=== PATIENT | female | born 1990 | race Caucasian/White ===

== ENCOUNTER 2022-10-09 14:22 | Inpatient (IN) ==
--- NOTE | 2022-10-09 15:24 | Emergency Department Note ---
Impression & Plan Abdominal pain, Colitis ED Provider Note HISTORY OF PRESENT ILLNESS: Patient is a 32-year-old female presenting with abdominal pain and hematochezia. Patient reports that she has been having generalized abdominal pain that radiates into her back since last night. Reports that today she has been having multiple episodes of bright red hematochezia. Denies any nausea, vomiting or diarrhea. Denies any history of abdominal surgeries. Denies any fevers. She is on Coumadin for history of pulmonary embolism. Denies any dysuria or hematuria. ROS: as above PHYSICAL EXAM: Constitutional: Patient appears in no acute distress. HENT: Head: Normocephalic and atraumatic. Eyes: EOMI, PERRL Mouth/Throat: Mucous membranes moist. Neck: Trachea midline. Neck supple. Cardiovascular: RRR, No murmurs, rubs or gallops. Intact distal pulses. Pulmonary/Chest: No respiratory distress. Breath sounds clear and equal bilaterally. No wheezes or rales. Abdominal: Abdomen soft, no tenderness, rebound or guarding. Musculoskeletal: No edema, tenderness or deformity noted. Skin: Warm and dry. No rash, erythema, pallor or cyanosis Psychiatric: Appropriate mood and affect for situation. Neurological: Alert and keenly responsive. CN II-XII grossly intact, moving all extremities equally and fully. MDM: - Vitals signs showed hypertension and tachycardia. - History obtained via patient. Patient presents with abdominal pain and hematochezia. Patient reports has been having generalized abdominal pain that radiates into her back since last night. Reports that today she had multiple episodes of hematochezia. Denies any nausea, vomiting or diarrhea. Denies any fevers. She is on Coumadin for history of PE. - Chronic conditions affecting care: PE - Differential diagnoses include, but are not limited to: Diverticular bleed; diverticulitis; colitis; appendicitis - Order placed for continuous cardiac monitoring. At this time, monitor showed rate of 85 bpm with normal sinus rhythm, per my interpretation. - External medical records reviewed. ER visit note from yesterday and laborator y work-up were reviewed. - Laboratory workup interpreted by myself showed leukocytosis (WBC 14.11); normal electrolytes; normal lipase - CT abdomen/pelvis with IV contrast showed inflammation of the pancreas concerning for developing acute pancreatitis. Also noted to have some inflammation of the distal consistent with colitis. - Patient given 50 mcg IV fentanyl in ER. On reassessment, patient still complaining of pain and now complaining of nausea. Given 1L NS, 4 mg IV zofran and 4 mg IV morphine. - Discussed results with patient. Her bloody stool likely secondary to her colitis. Given her leukocytosis and symptoms, will treat as infectious colitis with agumentin. - Given dose of augmentin in ER. - Instructed the patient on return precautions. She is given a note to go home pack of oxycodone and Augmentin. Recommend she stay well-hydrated over the next few days. Recommended close follow-up with her primary care provider. Recommended taking Tylenol for further pain management. - On attempts to discharge the patient, she started crying and reported she is in "too much pain to go home." - Discussed case with group social worker for admission for observation. - Hospitalist consulted for admission. - Patient to be admitted to hospitalist for further evaluation and admission. ASSESSMENT AND PLAN: Diagnosis: Abdominal pain; colitis; bloody stool Plan: admit Past Med/Surg History Medical History On warfarin therapy Rheumatoid arthritis Social History Smoking Status: Current some day smoker Tobacco Type: Cigarettes and E-cigarettes / Vaping Preferred Language: Hungarian Feels Safe at Home: Yes Allergies Allergies Allergy/AdvReac Type Severity Reaction Status Date / Time No Known Allergies Allergy Mild Unverified 12/08/20 12:40 Home Meds Home Medications Medication Instructions Recorded Confirmed Zolpidem Tartrate (Ambien *) ##0 12/24/05 Cyclobenzaprine Hcl (Flexeril *) 10 mg PO TID ##21 10/27/08 Lorazepam (Ativan *) 0.5 mg PO Q6HR PRN ##0 10/27/08 Meloxicam (Mobic) 15 mg PO PRN ##0 10/27/08 Methadone Hcl (Dolophine) 5 mg PO QPM ##0 10/27/08 Methadone Hcl (Dolophine) 10 mg PO QAM ##0 10/27/08 Methylphenidate (Ritalin) 10 mg PO PRN ##0 10/27/08 PRISTIQUE ##0 09/21/09 Previous Rx's Medication Instructions Recorded Cephalexin Monohydrate (Keflex) 500 mg PO TID ##30 12/24/05 Azithromycin (Zithromax) 500 mg PO DAILY ##4 10/27/08 amoxicillin 875 mg-potassium 1 tab PO BID 7 days #14 tabs 10/09/22 clavulanate 125 mg tablet ondansetron HCl 4 mg tablet 4 mg PO Q8H PRN nausea and 10/09/22 vomiting 4 days #14 tabs Results & Data (ED) Vital Signs Vital Signs - 24 hr 10/09/22 14:24 10/09/22 15:26 10/09/22 15:47 Temperature 36.8 C Temperature Source Temporal Artery Scan Pulse Rate 114 H 85 Respiratory Rate 18 Respiratory Effort / Characteristics Non-Labored Respiratory Depth Normal Respiratory Pattern Regular Blood Pressure 162/94 H Blood Pressure Mean 116 Pulse Oximetry 99 Oxygen Delivery Method Room Air Room Air Sepsis Recent Fever Within 48 Hours No Sepsis New/Unexplained Change in Mental Status N/A Sepsis Action Taken by Nursing No Action Required Laboratory Data 10/09/22 15:22 10/09/22 15:22 Lab Results 10/09/22 10/09/22 10/09/22 Range/Units 15:22 15:22 15:22 WBC 14.11 H (4.8-10.8) K/ul RBC 4.80 (4.20-5.40) M/uL Hgb 14.4 (12.0-16.0) g/dl Hct 41.1 (37.0-47.0) % MCV 85.6 (80.0-100.0) fL MCH 30.0 (25.0-34.0) pg MCHC 35.0 (32.0-36.0) g/dL RDW Std Deviation 41.1 (36.4-46.3) fL RDW Coeff of Junaid 13.3 (11.5-14.5) % Plt Count 396 (130-400) K/uL MPV 10.4 (9.4-12.4) fL Immature Gran % (Auto) 0.4 % Neut % (Auto) 76.9 % Lymph % (Auto) 16.2 % [place] % (Auto) 5.6 % Eos % (Auto) 0.4 % Baso % (Auto) 0.5 % Neut # (Auto) 10.86 H (1.40-6.50) K/uL Lymph # (Auto) 2.28 (1.20-3.40) K/uL [place] # (Auto) 0.79 H (0.11-0.59) K/uL Eos # (Auto) 0.05 (0.00-0.50) K/uL Baso # (Auto) 0.07 (0.00-0.20) K/uL Immature Gran # (Auto) 0.06 (0.01-0.20) K/uL Sodium 137 (136-145) mmol/L Potassium 3.5 (3.5-5.1) mmol/L Chloride 102 (98-107) mmol/L Carbon Dioxide 25 (21-32) mmol/L Anion Gap 10 (3-11) BUN 11 (6-23) mg/dl Creatinine 0.51 L (0.6-1.2) mg/dl Est Cr Clr Drug Dosing 178.6 ml/min Est GFR ( Amer) 145.4 ml/min Est GFR (Non-Af Amer) 125.5 ml/min BUN/Creatinine Ratio 21.6 H (10-20) Glucose 88 (70-99(Fasting)) mg/dl Lactate 1.1 (0.4-2.0) mmol/L Calcium 9.7 (8.6-10.3) mg/dl Total Bilirubin 0.4 (0.2-1.0) mg/dl AST 14 (13-39) U/L ALT 14 (7-52) U/L Alkaline Phosphatase 64 (34-104) U/L Total Protein 7.0 (6.0-8.3) gm/dl Albumin 4.5 (3.4-5.0) gm/dl Globulin 2.5 (2.5-4.0) gm/dl Albumin/Globulin Ratio 1.8 (0.9-2) Lipase 57 (11-82) U/L Administered Medications Sodium Chloride (Nss 1000ml) 1,000 mls @ 999 mls/hr IV .Q1H1M ONE Stop: 10/09/22 18:13 Last Admin: 10/09/22 17:28 Dose: 999 mls/hr Documented By: Discontinued Medications Fentanyl Citrate (Fentanyl Citrate Pf 100 Mcg/2 Ml Vial) 50 mcg IV NOW STA Stop: 10/09/22 16:13 Last Admin: 10/09/22 16:16 Dose: 50 mcg Documented By: BELLA Ioversol (Optiray 320 100ml) 92 ml IV ONCE ONE Stop: 10/09/22 16:57 Last Admin: 10/09/22 16:56 Dose: 92 ml Documented By: SCOTTIE Morphine Sulfate (Morphine Sulfate 4 Mg/Ml 1 Ml Carp\\Vial) 4 mg IV NOW STA Stop: 10/09/22 17:14 Last Admin: 10/09/22 17:29 Dose: 4 mg Documented By: BELLA Ondansetron HCl (Ondansetron Inj 2 Mg/Ml 2 Ml Vial) 4 mg IV NOW STA Stop: 10/09/22 17:14 Last Admin: 10/09/22 17:28 Dose: 4 mg Documented By: BELLA Imaging Data Radiologist's Impression: Abdomen/Pelvis CT 10/09/22 14:[address] WITH IV CONTRAST CT DOSE: 1380.75 mGy.cm HISTORY: lower abdominal pain; blood in stool TECHNIQUE: Multiaxial CT images of the abdomen and pelvis were performed following the use of intravenous contrast. A dose lowering technique was utilized adhering to the principles of ALARA. COMPARISON STUDY: None. FINDINGS: Mild dependent changes seen at the lung bases. No pneumoperitoneum. No pneumatosis. No acute fractures identified. The liver, spleen, adrenal glands, gallbladder, and kidneys are unremarkable. No hydronephrosis. The main portal vein is patent. Normal caliber abdominal aorta. There is a left retroaortic renal vein. No retroperitoneal or pelvic lymphadenopathy. The bladder is decompressed but appears unremarkable. Small uterine fibroids are suggested. Normal ovaries. No pelvic free fluid. Questionable mild fat stranding at the head of the pancreas. Recommend correlation with pancreatic enzymes to exclude the possibility of a developing acute pancreatitis. Otherwise, the pancreas enhances normally. The majority of the colon is decompressed resulting in s uboptimal evaluation. There is suggestion of mild thickening within the distal transverse colon best seen on image 126. This could represent a low-grade nonspecific colitis. This favors an infectious or inflammatory process. The major mesenteric vessels appear patent. No dilated loops of bowel to suggest an obstruction. Normal appendix. IMPRESSION: 1. There is suggestion of mild thickening within the distal transverse colon as described above. This could represent a low-grade nonspecific colitis. This favors an infectious or inflammatory process. 2. Questionable mild fat stranding at the head of the pancreas. Recommend correlation with pancreatic enzymes to exclude the possibility of a developing acute pancreatitis. ACT 112: Negative or not required by law. Electronically signed by: Rupert Livingston M.D. 10/09/2022 5:17 PM Discharge Plan Visit Data Chief Complaint: Abdominal Pain Stated Complaint: ABDOMINAL PAIN, BLOOD IN STOOL ED Provider: Quin Roth Discharge Problem: Abdominal pain, Colitis Patient Disposition: Home - Self-Care Discharge Instructions Krames/Other Patient Handouts: ED Diarrhea, Viral (Adult) Activity Restrictions/Additional Instructions: Recommend staying well-hydrated the next 2 days. Please take Tylenol as needed for pain. Please follow close with your primary care provider. Recommend a low-fat diet over the next few days. Return to the emergency department if you are unable to tolerate anything by mouth, develop chest pain or shortness of breath, fever, or any new or worsening symptoms. Forms Stand Alone Forms: [facility], Virtual Emergency Department, Important Visit Information Prescriptions Prescriptions: New amoxicillin-pot clavulanate 875-125 mg tablet 1 tab PO BID 7 Days Qty: 14 0RF ondansetron HCl 4 mg tablet 4 mg PO Q8H PRN (Reason: nausea and vomiting) 4 Days Qty: 14 0RF No Action Zolpidem Tartrate (Ambien *) 5 MG tablet Qty: 0 Cephalexin Monohydrate (Keflex) 500 MG capsule 500 mg PO TID Qty: 30 0RF Cyclobenzaprine Hcl (Flexeril *) 10 MG tablet 10 mg PO TID Qty: 21 Patient Comments: PRN Lorazepam (Ativan *) 0.5 MG tablet 0.5 mg PO Q6HR PRN Qty: 0 Meloxicam (Mobic) 15 MG tablet 15 mg PO PRN Qty: 0 Methadone Hcl (Dolophine) 10 MG tablet 10 mg PO QAM Qty: 0 Methadone Hcl (Dolophine) 5 MG tablet 5 mg PO QPM Qty: 0 Methylphenidate (Ritalin) 10 MG tablet 10 mg PO PRN Qty: 0 PRISTIQUE Qty: 0 Azithromycin (Zithromax) 500 MG tablet 500 mg PO DAILY Qty: 4 0RF Referrals Referrals: Partha Mei, [Primary Care Provider] -
[2022-10-09 16:02] LABS: Basophils # (auto) 0.07 K/uL (0.00-0.20); Basophils % (auto) 0.5 %; Eosinophils # (auto) 0.05 K/uL (0.00-0.50); Eosinophils % (auto) 0.4 %; Hematocrit (blood only) 41.1 % (37.0-47.0); Hemoglobin 14.4 g/dl (12.0-16.0); Immature Granulocytes # (auto) 0.06 K/uL (0.01-0.20); Immature Granulocytes % (auto) 0.4 %; Lymphocytes # (auto) 2.28 K/uL (1.20-3.40); Lymphocytes % (auto) 16.2 %; Mean Corpuscular Volume 85.6 fL (80.0-100.0); Mean Platelet Volume 10.4 fL (9.4-12.4); Monocytes # (auto) 0.79 K/uL (0.11-0.59); Monocytes % (auto) 5.6 %; Neutrophils # (auto) 10.86 K/uL (1.40-6.50); Neutrophils % (auto) 76.9 %; Platelet Count 396 K/uL (130-400); RDW Coefficient of Variation 13.3 % (11.5-14.5); RDW Standard Deviation 41.1 fL (36.4-46.3); White Blood Count 14.11 K/ul (4.8-10.8)
[2022-10-09] MEDS ORDERED: fentaNYL citrate PF 100 MCG/2 ML VIAL IV STA (16:12)
[2022-10-09 16:27] LABS: Albumin Globulin Ratio 1.8 (0.9-2); Albumin Level 4.5 gm/dl (3.4-5.0); BUN Creatinine Ratio 21.6 (10-20); Bilirubin,Total 0.4 mg/dl (0.2-1.0); Calcium 9.7 mg/dl (8.6-10.3); Creatinine Clr Calc Pharmacy 178.6 ml/min; Est GFR (African American) 145.4 ml/min; Est GFR (Non-African American) 125.5 ml/min; Globulin 2.5 gm/dl (2.5-4.0); Potassium 3.5 mmol/L (3.5-5.1)
[2022-10-09] MEDS ORDERED: OPTIRAY 320 100ml IV ONE (16:56)
[2022-10-09] MEDS ORDERED: ONDANSETRON INJ 2 MG/ML 2 ML VIAL IV STA (17:13)
[2022-10-09] MEDS ORDERED: MoRPHine SULFATE 4 MG/ML 1 ML CARP\\VIAL IV STA (17:13)
[2022-10-09] MEDS ORDERED: SODIUM CHLORIDE 0.9% 1,000 ML IV ONE (17:13)
--- NOTE | 2022-10-09 17:20 | CT Scan Report ---
ABDOMEN AND PELVIS CT WITH IV CONTRAST CT DOSE: 1380.75 mGy.cm HISTORY: lower abdominal pain; blood in stool TECHNIQUE: Multiaxial CT images of the abdomen and pelvis were performed following the use of intrave nous contrast. A dose lowering technique was utilized adhering to the principles of ALARA. COMPARISON STUDY: None. FINDINGS: Mild dependent changes seen at the lung bases. No pneumoperitoneum. No pneumatosis. No acut e fractures identified. The liver, spleen, adrenal glands, gallbladder, and kidneys are unremarkable. No hydronephrosis. The main portal vein is patent. Normal caliber abdominal aorta. There is a left r etroaortic renal vein. No retroperitoneal or pelvic lymphadenopathy. The bladder is decompressed but appears unremarkable. Small uterine fibroids are suggested. Normal ovaries. No pelvic free fluid. Que stionable mild fat stranding at the head of the pancreas. Recommend correlation with pancreatic enzym es to exclude the possibility of a developing acute pancreatitis. Otherwise, the pancreas enhances no rmally. The majority of the colon is decompressed resulting in suboptimal evaluation. There is sugges tion of mild thickening within the distal transverse colon best seen on image 126. This could represe nt a low-grade nonspecific colitis. This favors an infectious or inflammatory process. The major mese nteric vessels appear patent. No dilated loops of bowel to suggest an obstruction. Normal appendix. IMPRESSION: 1. There is suggestion of mild thickening within the distal transverse colon as described above. This could represent a low-grade nonspecific colitis. This favors an infectious or inflammatory process. 2. Questionable mild fat stranding at the head of the pancreas. Recommend correlation with pancreatic enzymes to exclude the possibility of a developing acute pancreatitis. ACT 112: Negative or not required by law. Electronically signed by: Rupert Livingston M.D. 10/09/2022 5:17 PM
[2022-10-09] MEDS ORDERED: AMOXICILLIN/CLAVULANATE 875MG HOME PACK PO ONE (17:23)
[2022-10-09] MEDS ORDERED: AMOXICILLIN/CLAVULANATE 875 MG TAB PO ONE (17:23)
[2022-10-09] MEDS ORDERED: oxyCODONE IR HOME PACK PO ONE (17:29)
[2022-10-09] MEDS ORDERED: ONDANSETRON HOME PACK 4MG OD TAB PO ONE (17:29)
[2022-10-09] MEDS ORDERED: MoRPHine SULFATE 4 MG/ML 1 ML CARP\\VIAL IV PRN (18:18)
[2022-10-09 19:44] LABS: Pregnancy Test, Urine Negative (Negative)
[2022-10-09 19:45] LABS: Appearance Urine Clear (Clear); Bacteria Urine Automated Negative (Negative); Bilirubin Urine Negative (Negative); Blood Urine 2+ (Negative); Cast Urine Automated 0 /lpf (0-5); Color Urine Yellow; Epithelial Cell Urine Auto 0-5 /lpf (0-5); Glucose Urine UA Negative (Negative); Ketones Urine 1+ (Negative); Leukocyte Esterase Urine Negative (Negative); Nitrite Urine Negative (Negative); Protein Urine Negative (Negative); Specific Gravity Urine 1.039 (1.000-1.030); Urobilinogen Urine Negative (Negative); WBC Urine Automated 0 /hpf (0-5)
--- NOTE | 2022-10-09 19:48 | History & Physical Report ---
Date of Service October 09, 2022 Assessment & Plan (1) Abdominal pain: (2) Colitis: Plan: Poss. starting acute pancreatitis Pt presents w/ abd. pain, also reports BRBPR CT abd. pelvis 1. There is suggestion of mild thickening within the distal transverse colon as described above. This could represent a low-grade nonspecific colitis. This favors an infectious or inflammatory process. 2. Questionable mild fat stranding at the head of the pancreas. Recommend correlation with pancreatic enzymes to exclude the possibility of a developing acute pancreatitis. Stool PCR , c. diff ordered FOBT ordered lipase 57 -> will repeat lipase tmrw - as possibly developing acute pancreatitis Received IVF in the ED, cont. w/ IVF, NPO pain control For poss. colitis, start zosyn, await stool studies Hgb 14.4, monitor H&H. in ED pt hemodynamically stable If w/o improvement, consider consulting w/ GI in the morning Chronic conditions bipolar, fibromyalgia, adhd, hx of HAs, adrenal insufficiency - cont. home meds hx of PE, poss. factor V leiden - on chronic anticoagulation - warfarin 15 mg MWF, other days 10 mg - cont. warfarin and monitor INR daily History of Present Illness Chief Complaint: Abd. pain Primary Care Provider: Partha Mei, DO 32 yo F w/ hx of PE (on coumadin), ADHD, seronegat. RA , fibromyalgia, bipolar d/o, poss. factor V leiden, who presents w/ abdominal pain. Pt first presented in the ED yesterday with poss. flank pain and CT PE was obt ained and negative for PE. Today she presented again in the ED as she said she was now noticing blood in the stool and had severe abdominal pain. Pt is on warfarin due to hx of PE and poss. factor V leiden. INR 2.4 today in ER. Pt says her INR tends to fluctuate. Pt reports epigastric pain mostly that radiates to her back, also reports nausea. At home pt takes tramadol 50 tid for chronic pain (associated w/ RA). In the ED CT abd. pelvis was obtained and concerning for poss. starting pancreatitis and also colitis. Initially plan was to discharge pt on oral augmentin and po pain meds however pt reports pain being uncontrolled and therefore pt is being admitted to the hospital. Fam hx - mother - hx of RA, breast ca Allergies Allergy/AdvReac Type Severity Reaction Status Date / Time adhesive Allergy Intermediate Rash Unverified 10/09/22 19:54 Home Medications Medication Instructions Recorded Confirmed Type Methylphenidate (Ritalin) 20 mg PO TID ##0 10/27/08 10/09/22 History amoxicillin 875 mg-potassium 1 tab PO BID 7 days #14 tabs 10/09/22 10/09/22 Rx clavulanate 125 mg tablet [id number] 1 cap PO Q4H PRN Headache 10/09/22 10/09/22 History 50 mg-300 mg-40 mg capsule gabapentin 300 mg capsule 300 mg PO HS 10/09/22 10/09/22 History hydrocortisone 5 mg tablet See Rx Instructions .Route .COMPLEX 10/09/22 10/09/22 History lamotrigine 100 mg tablet 100 mg PO HS 10/09/22 10/09/22 History lamotrigine 25 mg tablet 50 mg PO HS 10/09/22 10/09/22 History methotrexate sodium 25 mg/mL 25 mg subcut WK 10/09/22 10/09/22 History injection solution ondansetron HCl 4 mg tablet 4 mg PO Q8H PRN nausea and 10/09/22 10/09/22 Rx vomiting 4 days #14 tabs prochlorperazine maleate 10 mg 10 mg PO Q6H PRN Nausea 10/09/22 10/09/22 History tablet tramadol 50 mg tablet 50 mg PO Q4H PRN Pain 10/09/22 10/09/22 History warfarin 10 mg tablet See Rx Instructions .Route .COMPLEX 10/09/22 10/09/22 History Past Med/Surg History Medical History On warfarin therapy Rheumatoid arthritis Social History Smoking Status: Current some day smoker Tobacco Type: Cigarettes and E-cigarettes / Vaping Do You Dip or Chew Tobacco: No; Hx Alcohol Use: No Hx Substance Use: No Preferred Language: Yoruba Communication Ability: Effective Joint Filler Required: No Beliefs That Will Affect Care: None Current Living Situation: Family Other Information That Helps Us Care for You: No Feels Safe at Home: No Is there a partner from a previous relationship who is making you feel unsafe now?: No Any Concerns about Your Family Situation: No Would You Like to Speak to Someone About Your Situation: No Safety Concerns: Feels Safe At This Time Assistive Devices: Glasses Review of Systems Review of Systems: All systems reviewed & are unremarkable except as noted in HPI & below Physical Exam Constitutional: WD/WN, vitals as above (obese F) Eyes: PERRL, conjunctivae normal, anicteric sclerae ENMT: external ear and nose normal, oropharynx normal Neck: trachea midline, no thyromegaly Respiratory: normal respiratory effort, lungs clear to auscultation Cardiovascular: RRR, no murmur, no edema Gastrointestinal (Abdomen): Inspection/Auscultation: abdomen normal to inspection (soft, obese, tender to palp at epigastric region) Musculoskeletal: no cyanosis or clubbing, extremities motor strength 5/5 Skin: no rashes, warm and dry Neurologic: PERRL, EOMI, accommodation nl, no face palsy, no dysarthria Psychiatric: A+Ox3, euthymic affect Results & Data Results & Data Vital Signs (Past 12 Hours) Vital Signs Temp Pulse Pulse Resp BP Pulse Ox O2 Del Method 10/09/22 19:38 86 20 99 Room Air 10/09/22 18:00 83 20 158/98 H 99 Room Air 10/09/22 16:00 88 16 100 Room Air 10/09/22 15:47 85 10/09/22 15:26 Room Air 10/09/22 14:24 36.8 C 114 H 18 162/94 H 99 Room Air Laboratory Results 10/09/22 10/09/22 10/09/22 Range/Units 19:15 19:15 15:22 WBC (4.8-10.8) K/ul RBC (4.20-5.40) M/uL Hgb (12.0-16.0) g/dl Hct (37.0-47.0) % MCV (80.0-100.0) fL MCH (25.0-34.0) pg MCHC (32.0-36.0) g/dL RDW Std Deviation (36.4-46.3) fL RDW Coeff of Junaid (11.5-14.5) % Plt Count (130-400) K/uL MPV (9.4-12.4) fL Immature Gran % (Auto) % Neut % (Auto) % Lymph % (Auto) % [place] % (Auto) % Eos % (Auto) % Baso % (Auto) % Neut # (Auto) (1.40-6.50) K/uL Lymph # (Auto) (1.20-3.40) K/uL [place] # (Auto) (0.11-0.59) K/uL Eos # (Auto) (0.00-0.50) K/uL Baso # (Auto) (0.00-0.20) K/uL Immature Gran # (Auto) (0.01-0.20) K/uL Sodium (136-145) mmol/L Potassium (3.5-5.1) mmol/L Chloride (98-107) mmol/L Carbon Dioxide (21-32) mmol/L Anion Gap (3-11) BUN (6-23) mg/dl Creatinine (0.6-1.2) mg/dl Est Cr Clr Drug Dosing ml/min Est GFR ( Amer) ml/min Est GFR (Non-Af Amer) ml/min BUN/Creatinine Ratio (10-20) Glucose (70-99(Fasting)) mg/dl Lactate 1.1 (0.4-2.0) mmol/L Calcium (8.6-10.3) mg/dl Total Bilirubin (0.2-1.0) mg/dl AST (13-39) U/L ALT (7-52) U/L Alkaline Phosphatase (34-104) U/L Total Protein (6.0-8.3) gm/dl Albumin (3.4-5.0) gm/dl Globulin (2.5-4.0) gm/dl Albumin/Globulin Ratio (0.9-2) Lipase (11-82) U/L Urine Color Yellow Urine Appearance Clear (Clear) Urine pH 6.0 (4.5-7.5) Ur Specific [place] 1.039 H (1.000-1.030) Urine Protein Negative (Negative) Urine Glucose (UA) Negative (Negative) Urine Ketones 1+ H (Negative) Urine Blood 2+ H (Negative) Urine Nitrite Negative (Negative) Urine Bilirubin Negative (Negative) Urine Urobilinogen Negative (Negative) Ur Leukocyte Esterase Negative (Negative) Urine WBC (Auto) 0 (0-5) /hpf Urine RBC (Auto) 5-10 H (0-4) /hpf U Hyaline Cast (Auto) 0 (0-5) /lpf U Epithel Cells (Auto) 0-5 (0-5) /lpf Urine Bacteria (Auto) Negative (Negative) Urine Test Negative (Negative) 10/09/22 10/09/22 Range/Units 15:22 15:22 WBC 14.11 H (4.8-10.8) K/ul RBC 4.80 (4.20-5.40) M/uL Hgb 14.4 (12.0-16.0) g/dl Hct 41.1 (37.0-47.0) % MCV 85.6 (80.0-100.0) fL MCH 30.0 (25.0-34.0) pg MCHC 35.0 (32.0-36.0) g/dL RDW Std Deviation 41.1 (36.4-46.3) fL RDW Coeff of Junaid 13.3 (11.5-14.5) % Plt Count 396 (130-400) K/uL MPV 10.4 (9.4-12.4) fL Immature Gran % (Auto) 0.4 % Neut % (Auto) 76.9 % Lymph % (Auto) 16.2 % [place] % (Auto) 5.6 % Eos % (Auto) 0.4 % Baso % (Auto) 0.5 % Neut # (Auto) 10.86 H (1.40-6.50) K/uL Lymph # (Auto) 2.28 (1.20-3.40) K/uL [place] # (Auto) 0.79 H (0.11-0.59) K/uL Eos # (Auto) 0.05 (0.00-0.50) K/uL Baso # (Auto) 0.07 (0.00-0.20) K/uL Immature Gran # (Auto) 0.06 (0.01-0.20) K/uL Sodium 137 (136-145) mmol/L Potassium 3.5 (3.5-5.1) mmol/L Chloride 102 (98-107) mmol/L Carbon Dioxide 25 (21-32) mmol/L Anion Gap 10 (3-11) BUN 11 (6-23) mg/dl Creatinine 0.51 L (0.6-1.2) mg/dl Est Cr Clr Drug Dosing 178.6 ml/min Est GFR ( Amer) 145.4 ml/min Est GFR (Non-Af Amer) 125.5 ml/min BUN/Creatinine Ratio 21.6 H (10-20) Glucose 88 (70-99(Fasting)) mg/dl Lactate (0.4-2.0) mmol/L Calcium 9.7 (8.6-10.3) mg/dl Total Bilirubin 0.4 (0.2-1.0) mg/dl AST 14 (13-39) U/L ALT 14 (7-52) U/L Alkaline Phosphatase 64 (34-104) U/L Total Protein 7.0 (6.0-8.3) gm/dl Albumin 4.5 (3.4-5.0) gm/dl Globulin 2.5 (2.5-4.0) gm/dl Albumin/Globulin Ratio 1.8 (0.9-2) Lipase 57 (11-82) U/L Urine Color Urine Appearance (Clear) Urine pH (4.5-7.5) Ur Specific [place] (1.000-1.030) Urine Protein (Negative) Urine Glucose (UA) (Negative) Urine Ketones (Negative) Urine Blood (Negative) Urine Nitrite (Negative) Urine Bilirubin (Negative) Urine Urobilinogen (Negative) Ur Leukocyte Esterase (Negative) Urine WBC (Auto) (0-5) /hpf Urine RBC (Auto) (0-4) /hpf U Hyaline Cast (Auto) (0-5) /lpf U Epithel Cells (Auto) (0-5) /lpf Urine Bacteria (Auto) (Negative) Urine Test (Negative) Diagnostic Findings CT abd. pelvis FINDINGS: Mild dependent changes seen at the lung bases. No pneumoperitoneum. No pneumatosis. No acute fractures identified. The liver, spleen, adrenal glands, gallbladder, and kidneys are unremarkable. No hydronephrosis. The main portal vein is patent. Normal caliber abdominal aorta. There is a left retroaortic renal vein. No retroperitoneal or pelvic lymphadenopathy. The bladder is decompressed but appears unremarkable. Small uterine fibroids are suggested. Normal ovaries. No pelvic free fluid. Questionable mild fat stranding at the head of the pancreas. Recommend correlation with pancreatic enzymes to exclude the possibility of a developing acute pancreatitis. Otherwise, the pancreas enhances normally. The majority of the colon is decompressed resulting in suboptimal evaluation. There is suggestion of mild thickening within the distal transverse colon best seen on image 126. This could represent a low-grade nonspecific colitis. This favors an infectious or inflammatory process. The major mesenteric vessels appear patent. No dilated loops of bowel to suggest an obstruction. Normal appendix. IMPRESSION: 1. There is suggestion of mild thickening within the distal transverse colon as described above. This could represent a low-grade nonspecific colitis. This favors an infectious or inflammatory process. 2. Questionable mild fat stranding at the head of the pancreas. Recommend correlation with pancreatic enzymes to exclude the possibility of a developing acute pancreatitis. CT PE FINDINGS: Lungs and pleura: Normal. Heart and pericardium: Heart size is normal. No pericardial effusion. Vessels: No evidence of pulmonary embolism. Mediastinum and elizabeth: Unremarkable. Chest wall and lower neck: Unremarkable. Abdomen: A hiatal hernia is seen. Bones: Degenerative changes in the thoracic spine. IMPRESSION: No acute abnormality and in particular no evidence of pulmonary embolus.
[2022-10-09] MEDS ORDERED: PIPERACILLIN/TAZOBACTAM 4.5 GM in DEXTROSE 5% 100 ML IV STA (20:34)
[2022-10-09] MEDS ORDERED: METHYLPHENIDATE 10 MG PO SCH (21:00)
[2022-10-09] MEDS: LACTATED RINGER'S 1,000 ML IV SCH (21:30)
[2022-10-09] MEDS: GABAPENTIN 300 MG CAP PO SCH (21:32)
[2022-10-09] MEDS: lamoTRIgine 100 MG TAB PO SCH (21:32)
[2022-10-09] MEDS: lamoTRIgine 25 MG TAB PO SCH (21:32)
[2022-10-09] MEDS: PANTOprazole 40 MG in SYRINGE 0 ML IV SCH (21:33)
[2022-10-09] MEDS: HYDROmorphone INJ 0.5 MG/0.5 ML SYR IV PRN (21:33)
[2022-10-09] MEDS ORDERED: Nursing to Pharmacy Communication SCH (21:45)
[2022-10-09 21:48] LABS: Adenovirus F 40/41 PCR Not Detected (NotDetected); Astrovirus PCR Not Detected (NotDetected); Campylobacter PCR Not Detected (NotDetected); Cryptosporidium PCR Not Detected (NotDetected); Cyclospora cayetanensis PCR Not Detected (NotDetected); Entamoeba histolytica PCR Not Detected (NotDetected); Enteroaggregative E.coli(EAEC) Not Detected (NotDetected); Enteropathogenic E.coli (EPEC) Not Detected (NotDetected); Enterotoxigenic E.coli (ETEC) Not Detected (NotDetected); Giardia lamblia PCR Not Detected (NotDetected); Norovirus GI/GII PCR Not Detected (NotDetected); Plesiomonas shigelloides PCR Not Detected (NotDetected); Rotavirus A PCR Not Detected (NotDetected); Salmonella PCR Not Detected (NotDetected); Sapovirus PCR Not Detected (NotDetected); Shiga-like Toxin E.coli (STEC) Not Detected (NotDetected); Shigella/Enteroinvasive E.coli Not Detected (NotDetected); Vibrio cholerae PCR Not Detected (NotDetected); Vibrio species PCR Not Detected (NotDetected); Yersinia enterocolitica PCR Not Detected (NotDetected)
[2022-10-10] MEDS: PIPERACILLIN/TAZOBACTAM 4.5 GM in DEXTROSE 5% 100 ML IV SCH ×3 (01:55→17:38)
[2022-10-10] MEDS: HYDROmorphone INJ 0.5 MG/0.5 ML SYR IV PRN ×7 (01:56→23:32)
[2022-10-10] MEDS: METHYLPHENIDATE HCL 10 MG TABLET PO SCH ×3 (05:45→15:30)
[2022-10-10] MEDS: LACTATED RINGER'S 1,000 ML IV SCH ×3 (05:45→21:45)
[2022-10-10 07:25] LABS: Hematocrit (blood only) 36.1 % (37.0-47.0); Hemoglobin 12.2 g/dl (12.0-16.0); Mean Corpuscular Hemoglobin 29.3 pg (25.0-34.0); Mean Corpuscular Hgb Conc 33.8 g/dL (32.0-36.0); Mean Corpuscular Volume 86.6 fL (80.0-100.0); Mean Platelet Volume 10.5 fL (9.4-12.4); Platelet Count 333 K/uL (130-400); RDW Coefficient of Variation 13.4 % (11.5-14.5); Red Blood Count 4.17 M/uL (4.20-5.40); White Blood Count 12.58 K/ul (4.8-10.8)
[2022-10-10 07:40] LABS: Albumin Globulin Ratio 1.5 (0.9-2); Albumin Level 3.8 gm/dl (3.4-5.0); BUN Creatinine Ratio 14.6 (10-20); Bilirubin,Total 0.5 mg/dl (0.2-1.0); Calcium 8.4 mg/dl (8.6-10.3); Creatinine Clr Calc Pharmacy 189.7 ml/min; Est GFR (African American) 148.3 ml/min; Globulin 2.5 gm/dl (2.5-4.0); Magnesium 1.7 mg/dl (1.7-2.4); Potassium 3.3 mmol/L (3.5-5.1); Total Protein 6.3 gm/dl (6.0-8.3)
[2022-10-10 07:47] LABS: Prothrombin Time 20.6 Seconds (9.0-12.0)
[2022-10-10] MEDS: HYDROCORTISONE 10 MG TAB PO SCH ×2 (08:03→11:18)
[2022-10-10] MEDS: PANTOprazole 40 MG in SYRINGE 0 ML IV SCH ×2 (08:04→21:08)
[2022-10-10] MEDS ORDERED: POTASSIUM CHLORIDE CRTAB 20 MEQ TABCR PO STA (08:12)
[2022-10-10] MEDS: BUTALBITAL/ASPIRIN/CAFFEINE 1 TAB TAB PO PRN ×2 (11:25→23:41)
[2022-10-10] MEDS: LIDOCAINE 5% 1 PATCH TD SCH (12:32)
--- NOTE | 2022-10-10 14:38 | Hospitalist Progress Note ---
Date of Service October 10, 2022 Assessment & Plan (1) Abdominal pain: Plan: Abdominal pain for the last 2 days associated with nausea no more vomiting since in the hospital Possible pancreatitis has been ruled out (2) Colitis: Plan: Nonspecific colitis involving the part of transverse colon Pt presents w/ abd. pain, also reports BRBPR C. difficile toxin has been negative and stool studies came back negative as well for any infection Has been started on intravenous Zosyn and will continue for now Will involve GI if there is no improvement by tomorrow CT abd. pelvis 1. There is suggestion of mild thickening within the distal transverse colon as described above. This could represent a low-grade nonspecific colitis. This favors an infectious or inflammatory process. 2. Questionable mild fat stranding at the head of the pancreas. Recommend correlation with pancreatic enzymes to exclude the possibility of a developing acute pancreatitis. Severe back pain History of lumbar back pain without radiation Worse with acute abdominal pain Will apply lidocaine patch on top of current intravenous Dilaudid as needed History of PE Factor V Leiden deficiency Has been on warfarin INR therapeutic Other chronic conditions bipolar, fibromyalgia, adhd, hx of HAs, adrenal insufficiency - cont. home meds hx of PE, poss. factor V leiden - on chronic anticoagulation - warfarin 15 mg MWF, other days 10 mg - cont. warfarin and monitor INR daily Admission and Anticipated Discharge Date Admission Date: October 09, 2022 Subjective 10/10/2022 The patient was seen and examined in the medical floor She has been crying in pain at the back without radiation Also has abdominal pain and nausea but no vomiting Denies any fever and or chills. No abdominal distention Review of Systems Review of Systems: All systems reviewed and are unremarkable except as noted below Physical Exam Physical Exam: Lying in bed with discomfort in the back and also in the abdomen Constitutional: well developed, well nourished, + ill appearing and + morbidly obese Eyes: PERRL, conjunctivae normal, anicteric sclerae ENMT: external ear and nose normal, oropharynx normal Neck: trachea midline, no thyromegaly Respiratory: no respiratory distress Auscultation: + diminished lung sounds; no crackles Cardiovascular: Rate/Rhythm: regular rate and regular rhythm; not tachycardic Heart Sounds: normal S1 and normal S2; no murmur Extremities: + edema (Trace edema bilaterally) Gastrointestinal (Abdomen): Inspection/Auscultation: + abdomen distended and normal bowel sounds Percussion/Palpation: + abdomen tender (Minimally tender in the epigastrium) and abdomen soft Musculoskeletal: No acute arthritis. Localized tenderness to the lower lumbar spinal area Neurologic: normal touch/pain/proprioception and moves all extremities; no focal motor deficits Psychiatric: A+Ox3, euthymic affect Lymphatic: no cervical or axillary lymphadenopathy Results & Data Results & Data Vital Signs (Past 12 Hours) Vital Signs Temp Pulse Resp BP Pulse Ox O2 Del Method 10/10/22 07:24 36.7 C 90 18 123/69 96 Room Air Laboratory Results Short CBC 10/09/22 10/10/22 Range/Units 15:22 06:04 WBC 14.11 H 12.58 H (4.8-10.8) K/ul Hgb 14.4 12.2 (12.0-16.0) g/dl Hct 41.1 36.1 L (37.0-47.0) % Plt Count 396 333 (130-400) K/uL BMP 10/09/22 10/10/22 15:22 06:04 Sodium 137 136 Potassium 3.5 3.3 L Chloride 102 103 Carbon Dioxide 25 24 BUN 11 7 Creatinine 0.51 L 0.48 L Glucose 88 89 Calcium 9.7 8.4 L Liver Function 10/09/22 10/10/22 Range/Units 15:22 06:04 Total Bilirubin 0.4 0.5 (0.2-1.0) mg/dl AST 14 11 L (13-39) U/L ALT 14 11 (7-52) U/L Alkaline Phosphatase 64 57 (34-104) U/L Albumin 4.5 3.8 (3.4-5.0) gm/dl Urine 10/09/22 Range/Units 19:15 Urine Color Yellow Urine Appearance Clear (Clear) Urine pH 6.0 (4.5-7.5) Ur Specific [place] 1.039 H (1.000-1.030) Urine Protein Negative (Negative) Urine Glucose (UA) Negative (Negative) Medications Administered Current Inpatient Medications Butalbital/Aspirin/Caffeine (Butalbital/Aspirin/Caffeine 1 Tab Tab) 1 tab PO Q4H PRN PRN Reason: Headache Stop: 11/08/22 21:01 Last Admin: 10/10/22 11:25 Dose: 1 tab Gabapentin (Gabapentin 300 Mg Cap) 300 mg PO HS JENNIFER Stop: 11/08/22 20:59 Last Admin: 10/09/22 21:32 Dose: 300 mg Hydrocortisone (Hydrocortisone 10 Mg Tab) 10 mg PO QAM JENNIFER Stop: 11/09/22 08:59 Last Admin: 10/10/22 08:03 Dose: 10 mg Hydrocortisone (Hydrocortisone 10 Mg Tab) 5 mg PO DAILY@1200 JENNIFER Stop: 11/09/22 11:59 Last Admin: 10/10/22 11:18 Dose: 5 mg Hydromorphone HCl (Hydromorphone Inj 0.5 Mg/0.5 Ml Syr) 0.5 mg IV Q3H PRN PRN Reason: Pain Stop: 10/23/22 20:53 Last Admin: 10/10/22 12:42 Dose: 0.5 mg Piperacillin Sod/Tazobactam (Sod 4.5 gm/ Dextrose) 120 mls @ 30 mls/hr IV Q8H JENNIFER; Protocol Stop: 10/19/22 01:59 Last Infusion: 10/10/22 13:54 Dose: Infused Lactated Ringer's (Lr) 1,000 mls @ 125 mls/hr IV .Q8H JENNIFER Stop: 11/08/22 20:29 Last Admin: 10/10/22 13:52 Dose: 125 mls/hr Pantoprazole Sodium 40 mg/ (Syringe) 10 mls @ 5 mls/min IV BID JENNIFER Stop: 11/08/22 20:59 Last Admin: 10/10/22 08:04 Dose: 5 mls/min Lamotrigine (Lamotrigine 25 Mg Tab) 50 mg PO HS JENNIFER Stop: 11/08/22 20:59 Last Admin: 10/09/22 21:32 Dose: 50 mg Lamotrigine (Lamotrigine 100 Mg Tab) 100 mg PO HS JENNIFER Stop: 11/08/22 20:59 Last Admin: 10/09/22 21:32 Dose: 100 mg Lidocaine (Lidocaine 5% 1 Patch) 1 patch TD QAM JENNIFER Stop: 11/09/22 11:44 Last Admin: 10/10/22 12:32 Dose: 1 patch Methylphenidate HCl (Methylphenidate Hcl 10 Mg Tablet) 20 mg PO TID@0600,1100,1500 [facility] Stop: 10/24/22 05:59 Last Admin: 10/10/22 11:24 Dose: 20 mg Miscellaneous (Remove Lidoderm Patch) 1 each N/A DAILY@2100 [facility] Stop: 11/09/22 20:59 Morphine Sulfate (Morphine Sulfate 4 Mg/Ml 1 Ml Carp\Vial) 3 mg IV Q3H PRN PRN Reason: Pain Stop: 10/23/22 18:17 Last Admin: 10/09/22 19:27 Dose: 3 mg Prochlorperazine (Prochlorperazine Maleate 10 Mg Tab) 10 mg PO Q6H PRN PRN Reason: Nausea Stop: 11/08/22 20:50 Warfarin Sodium (Warfarin Sod 10 Mg Tab) 10 mg PO [id number]@1600 [facility] Stop: 11/10/22 15:59 Warfarin Sodium (Warfarin Sod 5 Mg Tab) 15 mg PO [id number]@1600 [facility] Stop: 11/09/22 15:59
[2022-10-10] MEDS: WARFARIN SOD 5 MG TAB PO SCH (15:47)
[2022-10-10] MEDS ORDERED: HYDROmorphone INJ 0.5 MG/0.5 ML SYR IV STA (20:59)
[2022-10-10] MEDS: lamoTRIgine 25 MG TAB PO SCH (21:07)
[2022-10-10] MEDS: lamoTRIgine 100 MG TAB PO SCH (21:07)
[2022-10-10] MEDS: PROCHLORPERAZINE MALEATE 10 MG TAB PO PRN (21:07)
[2022-10-10] MEDS: GABAPENTIN 300 MG CAP PO SCH (21:07)
[2022-10-11] MEDS: PIPERACILLIN/TAZOBACTAM 4.5 GM in DEXTROSE 5% 100 ML IV SCH ×3 (02:43→17:47)
[2022-10-11] MEDS: HYDROmorphone INJ 0.5 MG/0.5 ML SYR IV PRN ×6 (02:43→22:02)
[2022-10-11] MEDS: LACTATED RINGER'S 1,000 ML IV SCH ×3 (05:40→20:38)
[2022-10-11 07:09] LABS: Basophils # (auto) 0.07 K/uL (0.00-0.20); Basophils % (auto) 0.5 %; Eosinophils # (auto) 0.21 K/uL (0.00-0.50); Eosinophils % (auto) 1.6 %; Hemoglobin 12.4 g/dl (12.0-16.0); Immature Granulocytes # (auto) 0.04 K/uL (0.01-0.20); Immature Granulocytes % (auto) 0.3 %; Lymphocytes # (auto) 1.87 K/uL (1.20-3.40); Lymphocytes % (auto) 14.1 %; Mean Corpuscular Hemoglobin 30.2 pg (25.0-34.0); Mean Corpuscular Hgb Conc 35.4 g/dL (32.0-36.0); Mean Corpuscular Volume 85.2 fL (80.0-100.0); Mean Platelet Volume 9.7 fL (9.4-12.4); Monocytes # (auto) 1.08 K/uL (0.11-0.59); Monocytes % (auto) 8.1 %; Neutrophils # (auto) 10.03 K/uL (1.40-6.50); Neutrophils % (auto) 75.4 %; Platelet Count 325 K/uL (130-400); RDW Coefficient of Variation 13.2 % (11.5-14.5); RDW Standard Deviation 40.9 fL (36.4-46.3); Red Blood Count 4.11 M/uL (4.20-5.40)
[2022-10-11] MEDS: METHYLPHENIDATE HCL 10 MG TABLET PO SCH ×3 (07:15→15:13)
[2022-10-11] MEDS: oxyCODONE HCL IR 5 MG TAB (IMMEDIATE RELEASE) PO PRN ×4 (07:15→20:34)
[2022-10-11 07:23] LABS: BUN Creatinine Ratio 8.3 (10-20); Calcium 8.7 mg/dl (8.6-10.3); Creatinine Clr Calc Pharmacy 189.7 ml/min; Est GFR (African American) 148.3 ml/min; Potassium 3.4 mmol/L (3.5-5.1)
[2022-10-11 07:29] LABS: INR 2.3 (0.9-1.1); Prothrombin Time 23.5 Seconds (9.0-12.0)
[2022-10-11] MEDS: PANTOprazole 40 MG in SYRINGE 0 ML IV SCH ×2 (08:24→20:35)
[2022-10-11] MEDS: HYDROCORTISONE 10 MG TAB PO SCH ×2 (08:25→12:25)
[2022-10-11] MEDS: LIDOCAINE 5% 1 PATCH TD SCH (08:25)
[2022-10-11] MEDS ORDERED: POTASSIUM CHLORIDE CRTAB 20 MEQ TABCR PO STA (08:43)
[2022-10-11] MEDS ORDERED: bisacodyL 5 MG TABEC PO ONE (08:48)
[2022-10-11] MEDS: PROCHLORPERAZINE MALEATE 10 MG TAB PO PRN (08:50)
[2022-10-11] MEDS: POLYETHYLENE (MIRALAX) 17 GM PACK PO SCH (09:25)
[2022-10-11] MEDS: WARFARIN SOD 10 MG TAB PO SCH (15:13)
--- NOTE | 2022-10-11 15:23 | Hospitalist Progress Note ---
Date of Service October 11, 2022 Assessment & Plan (1) Abdominal pain: Plan: Abdominal pain for the last 2 days associated with nausea no more vomiting since in the hospital Possible pancreatitis has been ruled out (2) Colitis: Plan: Nonspecific colitis involving the part of transverse colon Pt presents w/ abd. pain, also reports BRBPR C. difficile toxin has been negative and stool studies came back negative as well for any infection Has been started on intravenous Zosyn and will continue for now Colicky abdominal pain is not any better, no abdominal distention, bowel is not moved but passing gas Remains n.p.o.-currently on chips and sips GI consulted-awaiting input and recommendation CT abd. pelvis 1. There is suggestion of mild thickening within the distal transverse colon as described above. This could represent a low-grade nonspecific colitis. This favors an infectious or inflammatory process. 2. Questionable mild fat stranding at the head of the pancreas. Recommend correlation with pancreatic enzymes to exclude the possibility of a developing acute pancreatitis. Severe back pain History of lumbar back pain without radiation Worse with acute abdominal pain Will apply lidocaine patch on top of current intravenous Dilaudid as needed Back pain is controlled History of PE Factor V Leiden deficiency Has been on warfarin INR therapeutic Other chronic conditions bipolar, fibromyalgia, adhd, hx of HAs, adrenal insufficiency - cont. home meds hx of PE, poss. factor V leiden - on chronic anticoagulation - warfarin 15 mg MWF, other days 10 mg - cont. warfarin and monitor INR daily History of rheumatoid arthritis Admission and Anticipated Discharge Date Admission Date: October 11, 2022 Subjective 10/10/2022 The patient was seen and examined in the medical floor She has been crying in pain at the back without radiation Also has abdominal pain and nausea but no vomiting Denies any fever and or chills. No abdominal distention 10/11/2022 The patient was seen and examined in medical floor She has been crying with pain which is colicky in nature involving the upper abdomen Has not had any bowel movement but has been passing gas Denies any distention of the abdomen, no nausea and or vomiting Review of Systems Review of Systems: All systems reviewed and are unremarkable except as noted below Physical Exam Physical Exam: Lying in bed with discomfort in the back and also in the abdomen Constitutional: well developed, well nourished, + ill appearing and + morbidly obese Eyes: PERRL, conjunctivae normal, anicteric sclerae ENMT: external ear and nose normal, oropharynx normal Neck: trachea midline, no thyromegaly Respiratory: no respiratory distress Auscultation: + diminished lung sounds; no crackles Cardiovascular: Rate/Rhythm: regular rate and regular rhythm; not tachycardic Heart Sounds: normal S1 and normal S2; no murmur Extremities: + edema (Trace edema bilaterally) Gastrointestinal (Abdomen): Inspection/Auscultation: + abdomen distended and normal bowel sounds Percussion/Palpation: + abdomen tender (Minimally tender in the epigastrium) and abdomen soft Musculoskeletal: Has chronic back pain but no acute arthritis involving any of the joint Neurologic: normal touch/pain/proprioception and moves all extremities; no focal motor deficits Psychiatric: A+Ox3, euthymic affect Lymphatic: no cervical or axillary lymphadenopathy Results & Data Results & Data Vital Signs (Past 12 Hours) Vital Signs Temp Pulse Resp BP Pulse Ox O2 Del Method 10/11/22 14:09 36.9 C 95 H 17 116/76 99 Room Air 10/11/22 07:33 37.0 C 83 17 130/83 98 Room Air Laboratory Results Short CBC 10/11/22 Range/Units 06:43 WBC 13.30 H (4.8-10.8) K/ul Hgb 12.4 (12.0-16.0) g/dl Hct 35.0 L (37.0-47.0) % Plt Count 325 (130-400) K/uL BMP 10/11/22 06:43 Sodium 136 Potassium 3.4 L Chloride 103 Carbon Dioxide 26 BUN 4 L Creatinine 0.48 L Glucose 100 H Calcium 8.7 Medications Administered Current Inpatient Medications Butalbital/Aspirin/Caffeine (Butalbital/Aspirin/Caffeine 1 Tab Tab) 1 tab PO Q4H PRN PRN Reason: Headache Stop: 11/08/22 21:01 Last Admin: 10/10/22 23:41 Dose: 1 tab Gabapentin (Gabapentin 300 Mg Cap) 300 mg PO HS [facility] Stop: 11/08/22 20:59 Last Admin: 10/10/22 21:07 Dose: 300 mg Hydrocortisone (Hydrocortisone 10 Mg Tab) 10 mg PO QAM [facility] Stop: 11/09/22 08:59 Last Admin: 10/11/22 08:25 Dose: 10 mg Hydrocortisone (Hydrocortisone 10 Mg Tab) 5 mg PO DAILY@1200 [facility] Stop: 11/09/22 11:59 Last Admin: 10/11/22 12:25 Dose: 5 mg Hydromorphone HCl (Hydromorphone Inj 0.5 Mg/0.5 Ml Syr) 0.5 mg IV Q3H PRN PRN Reason: Pain Stop: 10/23/22 20:53 Last Admin: 10/11/22 14:15 Dose: 0.5 mg Piperacillin Sod/Tazobactam (Sod 4.5 gm/ Dextrose) 120 mls @ 30 mls/hr IV Q8H [facility]; Protocol Stop: 10/19/22 01:59 Last Infusion: 10/11/22 14:24 Dose: Infused Lactated Ringer's (Lr) 1,000 mls @ 125 mls/hr IV .Q8H [facility] Stop: 11/08/22 20:29 Last Admin: 10/11/22 13:29 Dose: 125 mls/hr Pantoprazole Sodium 40 mg/ (Syringe) 10 mls @ 5 mls/min IV BID [facility] Stop: 11/08/22 20:59 Last Admin: 10/11/22 08:24 Dose: 5 mls/min Lamotrigine (Lamotrigine 25 Mg Tab) 50 mg PO HS [facility] Stop: 11/08/22 20:59 Last Admin: 10/10/22 21:07 Dose: 50 mg Lamotrigine (Lamotrigine 100 Mg Tab) 100 mg PO HS [facility] Stop: 11/08/22 20:59 Last Admin: 10/10/22 21:07 Dose: 100 mg Lidocaine (Lidocaine 5% 1 Patch) 1 patch TD QAM [facility] Stop: 11/09/22 11:44 Last Admin: 10/11/22 08:25 Dose: 1 patch Methylphenidate HCl (Methylphenidate Hcl 10 Mg Tablet) 20 mg PO TID@0600,1100,1500 [facility] Stop: 10/24/22 05:59 Last Admin: 10/11/22 15:13 Dose: 20 mg Miscellaneous (Remove Lidoderm Patch) 1 each N/A DAILY@2100 [facility] Stop: 11/09/22 20:59 Last Admin: 10/10/22 21:08 Dose: 1 each Morphine Sulfate (Morphine Sulfate 4 Mg/Ml 1 Ml Carp\Vial) 3 mg IV Q3H PRN PRN Reason: Pain Stop: 10/23/22 18:17 Last Admin: 10/09/22 19:27 Dose: 3 mg Oxycodone HCl (Oxycodone Hcl Ir 5 Mg Tab (Immediate Release)) 5 mg PO Q4H PRN PRN Reason: Moderate Pain (Scale 4, 5, 6) Stop: 10/25/22 05:49 Last Admin: 10/11/22 11:42 Dose: 5 mg Polyethylene Glycol (Polyethylene (Miralax) 17 Gm Pack) 17 gm PO DAILY [facility] Stop: 11/10/22 08:59 Last Admin: 10/11/22 09:25 Dose: 17 gm Prochlorperazine (Prochlorperazine Maleate 10 Mg Tab) 10 mg PO Q6H PRN PRN Reason: Nausea Stop: 11/08/22 20:50 Last Admin: 10/11/22 08:50 Dose: 10 mg Warfarin Sodium (Warfarin Sod 10 Mg Tab) 10 mg PO [id number]@1600 [facility] Stop: 11/10/22 15:59 Last Admin: 10/11/22 15:13 Dose: 10 mg Warfarin Sodium (Warfarin Sod 5 Mg Tab) 15 mg PO [id number]@1600 [facility] Stop: 11/09/22 15:59 Last Admin: 10/10/22 15:47 Dose: 15 mg
[2022-10-11] MEDS: lamoTRIgine 100 MG TAB PO SCH (20:35)
[2022-10-11] MEDS: lamoTRIgine 25 MG TAB PO SCH (20:35)
[2022-10-11] MEDS: GABAPENTIN 300 MG CAP PO SCH (20:35)
[2022-10-12] MEDS: HYDROmorphone INJ 0.5 MG/0.5 ML SYR IV PRN ×6 (01:12→20:45)
[2022-10-12] MEDS: PIPERACILLIN/TAZOBACTAM 4.5 GM in DEXTROSE 5% 100 ML IV SCH ×2 (01:13→09:56)
[2022-10-12] MEDS: LACTATED RINGER'S 1,000 ML IV SCH ×3 (04:59→20:53)
[2022-10-12] MEDS: oxyCODONE HCL IR 5 MG TAB (IMMEDIATE RELEASE) PO PRN ×3 (06:20→15:07)
[2022-10-12] MEDS: METHYLPHENIDATE HCL 10 MG TABLET PO SCH ×3 (06:21→15:08)
[2022-10-12 07:52] LABS: Basophils # (auto) 0.08 K/uL (0.00-0.20); Basophils % (auto) 0.8 %; Eosinophils # (auto) 0.33 K/uL (0.00-0.50); Eosinophils % (auto) 3.4 %; Hematocrit (blood only) 33.8 % (37.0-47.0); Hemoglobin 11.7 g/dl (12.0-16.0); Immature Granulocytes # (auto) 0.03 K/uL (0.01-0.20); Immature Granulocytes % (auto) 0.3 %; Lymphocytes % (auto) 20.8 %; Mean Corpuscular Hemoglobin 29.9 pg (25.0-34.0); Mean Corpuscular Hgb Conc 34.6 g/dL (32.0-36.0); Mean Corpuscular Volume 86.4 fL (80.0-100.0); Mean Platelet Volume 9.6 fL (9.4-12.4); Monocytes # (auto) 0.76 K/uL (0.11-0.59); Monocytes % (auto) 7.9 %; Neutrophils % (auto) 66.8 %; Platelet Count 314 K/uL (130-400); RDW Coefficient of Variation 13.2 % (11.5-14.5); RDW Standard Deviation 41.7 fL (36.4-46.3); Red Blood Count 3.91 M/uL (4.20-5.40)
[2022-10-12 08:02] LABS: INR 2.6 (0.9-1.1); Prothrombin Time 27.2 Seconds (9.0-12.0)
[2022-10-12] MEDS: LIDOCAINE 5% 1 PATCH TD SCH (08:03)
[2022-10-12] MEDS: PANTOprazole 40 MG in SYRINGE 0 ML IV SCH (08:04)
[2022-10-12] MEDS: POLYETHYLENE (MIRALAX) 17 GM PACK PO SCH (08:06)
[2022-10-12] MEDS: HYDROCORTISONE 10 MG TAB PO SCH ×2 (08:06→12:12)
[2022-10-12 08:10] LABS: Alanine Aminotransferase 14 U/L (7-52); Albumin Globulin Ratio 1.4 (0.9-2); Albumin Level 3.8 gm/dl (3.4-5.0); Alkaline Phosphatase 74 U/L (34-104); Anion Gap 8 (3-11); Aspartate Aminotransferase 15 U/L (13-39); BUN Creatinine Ratio 10.9 (10-20); Bilirubin,Total 0.4 mg/dl (0.2-1.0); Blood Urea Nitrogen 5 mg/dl (6-23); Calcium 8.6 mg/dl (8.6-10.3); Carbon Dioxide 25 mmol/L (21-32); Chloride 105 mmol/L (98-107); Est GFR (African American) > 150.0 ml/min; Est GFR (Non-African American) 129.8 ml/min; Globulin 2.8 gm/dl (2.5-4.0); Glucose 87 mg/dl (70-99(Fasting)); Potassium 3.8 mmol/L (3.5-5.1); Sodium 138 mmol/L (136-145); Total Protein 6.6 gm/dl (6.0-8.3)
[2022-10-12] MEDS: PROCHLORPERAZINE MALEATE 10 MG TAB PO PRN ×2 (10:55→20:52)
--- NOTE | 2022-10-12 12:09 | Gastrointestinal Consultation ---
Date of Consultation October 12, 2022 Assessment & Plan (1) Colitis: (2) Bloody stools: Pt is a 32 yo female w abd pain, bloody stools, noted to have non specific thickening of her transverse colon on CT abd/pelvis. Stool cx and cdiff negative. DDx: infectious colitis, IBD, outlet bleeding - PPI daily - Advance diet as tolerated - May DC antibx - Avoid NSAIDs - Will arrange OP colonoscopy 4 to 6 weeks time - GI to sign off; pls recall prn Supervising Physician Co-Signing Physician Notes I personally saw and evaluated the patient with NETTE Martínez on 10/12/2022 and agree with her findings and plan of care. 32 y/o F with history of PE and factor 5 Leiden on Coumadin admitted with abdominal pain found to have mild transverse colitis on imaging. Patient denies any other symptoms other than abdominal pain including N/V, diarrhea,fevers, chills. She states she had 2 bloody stools prior to coming into the ER in the setting of constipation but they are now brown. No family history of IBD but reports a grandfather with colon cancer in his 70s. C. diff and enteric stool panel are negative. On exam abdomen is soft and non-tender. On exam there was also ? of an early developing pancreatitis but her lipase is normal and my suspicion for any pancreatitis is very low. We will arrange outpatient colonoscopy. No need for inpatient endoscopy at this time. GI will sign off but please call back with questions. Elizabeth Moran, DO Gastroenterology and Hepatology History of Present Illness Reason for Consultation: Colitis Requesting Physician: Dr. Sanchez Mohamud Attending Physician: Dr. Elizabeth Moran History of Present Illness Pt is a 32 yo female w hx of PE, factor V leiden, on Coumadin, ADHD, bipolar, RA, fibromyalgia, who was admitted 3 days ago w c/o upper abd pain, and bloody stools. She was noted to have non specific colitis on transverse colon on CT abd/pelvis. Stool cx and Cdiff negative. Pt reports that she stopped having bloody stools after admitted. In fact the last few days felt constipated and abd pain is improved. She is hungry and wants to eat. She had to take Miralax and Dulcolax to stimulate a BM today. She never had these symptoms before. Denies family hx of IBD, grandpa w hx of colon ca at age 70. She works in [employer]. Denies tobacco, ETOH, illicit drugs abuses. Does take NSAIDs occasionally for pain. Allergies Allergy/AdvReac Type Severity Reaction Status Date / Time adhesive Allergy Intermediate Rash Unverified 10/09/22 19:54 Home Medications Medication Instructions Recorded Confirmed Type Methylphenidate (Ritalin) 20 mg PO TID ##0 10/27/08 10/09/22 History amoxicillin 875 mg-potassium 1 tab PO BID 7 days #14 tabs 10/09/22 10/09/22 Rx clavulanate 125 mg tablet [id number] 1 cap PO Q4H PRN Headache 10/09/22 10/09/22 History 50 mg-300 mg-40 mg capsule gabapentin 300 mg capsule 300 mg PO HS 10/09/22 10/09/22 History hydrocortisone 5 mg tablet See Rx Instructions .Route .COMPLEX 10/09/22 10/09/22 History lamotrigine 100 mg tablet 100 mg PO HS 10/09/22 10/09/22 History lamotrigine 25 mg tablet 50 mg PO HS 10/09/22 10/09/22 History methotrexate sodium 25 mg/mL 25 mg subcut WK 10/09/22 10/09/22 History injection solution ondansetron HCl 4 mg tablet 4 mg PO Q8H PRN nausea and 10/09/22 10/09/22 Rx vomiting 4 days #14 tabs prochlorperazine maleate 10 mg 10 mg PO Q6H PRN Nausea 10/09/22 10/09/22 History tablet tramadol 50 mg tablet 50 mg PO Q4H PRN Pain 10/09/22 10/09/22 History warfarin 10 mg tablet See Rx Instructions .Route .COMPLEX 10/09/22 10/09/22 History Patient History Medical History On warfarin therapy Rheumatoid arthritis Social History Smoking Status: Current some day smoker Tobacco Type: Cigarettes and E-cigarettes / Vaping Do You Dip or Chew Tobacco: No; Hx Alcohol Use: No Hx Substance Use: No Preferred Language: Bhutanese Communication Ability: Effective Tobacco Sorter Required: No Beliefs That Will Affect Care: None Current Living Situation: Family Other Information That Helps Us Care for You: No Feels Safe at Home: No Is there a partner from a previous relationship who is making you feel unsafe now?: No Any Concerns about Your Family Situation: No Would You Like to Speak to Someone About Your Situation: No Safety Concerns: Feels Safe At This Time Assistive Devices: None Review of Systems Review of Systems: All systems reviewed & are unremarkable except as noted in HPI & below Physical Exam Constitutional: WD/WN, vitals as above well groomed, cooperative and comfortable Eyes: PERRL, conjunctivae normal, anicteric sclerae ENMT: external ear and nose normal, oropharynx normal Respiratory: normal respiratory effort, lungs clear to auscultation Cardiovascular: RRR, no murmur, no edema Gastrointestinal (Abdomen): normal bowel sounds, soft, nontender, no hepatosplenomegaly Skin: no rashes, warm and dry no jaundice Psychiatric: A+Ox3, euthymic affect Lymphatic: no lymphedema Results & Data Vital Signs (Past 12 Hours) Vital Signs Temp Pulse Resp BP Pulse Ox O2 Del Method 10/12/22 08:11 37.0 C 94 H 17 115/79 98 Room Air
--- NOTE | 2022-10-12 14:11 | Hospitalist Progress Note ---
Date of Service October 12, 2022 Assessment & Plan (1) Abdominal pain: Plan: Abdominal pain for the last 2 days associated with nausea no more vomiting since in the hospital Possible pancreatitis has been ruled out (2) Colitis: Plan: Nonspecific colitis involving the part of transverse colon Pt presents w/ abd. pain, also reports BRBPR C. difficile toxin has been negative and stool studies came back negative as well for any infection Has been started on intravenous Zosyn CT abd. pelvis 1. There is suggestion of mild thickening within the distal transverse colon as described above. This could represent a low-grade nonspecific colitis. This favors an infectious or inflammatory process.2. Questionable mild fat stranding at the head of the pancreas. Recommend correlation with pancreatic enzymes to exclude the possibility of a developing acute pancreatitis. GI Consulted - Discussed with GI, pt able to advance diet, they will follow up as OP with c scope D/C Antibiotics, less likely infectious Advance diet as tolerated, pt tolerated regular lunch but will be sure she is tolerating for a few meals prior to d/c Pt will need OP C scope in 4-6 weeks which GI will arrange Possible Gastritis PPI BID x 1 month, then daily their after avoid NSAIDS can use topical lidocaine or diclofenac gel Severe back pain History of lumbar back pain without radiation Worse with acute abdominal pain Will apply lidocaine patch on top of current intravenous Dilaudid as needed Back pain is controlled History of PE Factor V Leiden deficiency Has been on warfarin INR therapeutic check INR in a.m. Other chronic conditions bipolar, fibromyalgia, adhd, hx of HAs, adrenal insufficiency - cont. home meds History of rheumatoid arthritis DVT ppx: Warfarin Dispo: diet advanced, if remains tolerant likely d/c tomorrow with GI follow up FULL CODE PCP: Ham[facility] Pt was seen and examined in collaboration with Dr. Mohamud, please see addendum Admission and Anticipated Discharge Date Admission Date: October 11, 2022 Supervising Physician Co-Signing Physician Notes Patient seen and examined at bedside as a follow-up of nonspecific colitis involving the bilateral transverse colon, possible gastritis secondary to long- term use of ibuprofen [patient reports using 3 tablets of ibuprofen every 4-6 for last 3 months]. GI evaluated, discontinue antibiotics. Will need outpatient scope in 4 to 6 weeks. Will use PPI twice daily for gastritis. Patient advised to use topical lidocaine or diclofenac gel in future. Reports otherwise improving symptoms of gastritis and low back pain. On examination: Patient on room air, epigastric mild tenderness noted. Rest of the examination as above. I have seen and examined the patient and have discussed the case with the provider above. I agree with the assessment and plan as stated. Subjective Patient was seen and evaluated in 362. Follow up Colitis. Continues to c/o of epigastric and b/l upper quad abd pain, relieved by narcotics. Has not ate in 4 days. Saw GI today who advanced diet and pt states, "it felt so good to eat something solid." + BM, denies f/c/s, chest pain, sob, n/v/d. Denies hematochezia, melena. Review of Systems Review of Systems: All systems reviewed & are unremarkable except as noted in HPI & below Physical Exam Physical Exam: Gen: WD/WN, NAD, A&O x3 HEENT: Normocephalic, atraumatic, conjunctivae moist, sclerae anicteric, mucous membranes moist. Lung: Clear to Auscultation bilaterally, no wheezes/rales/rhonchi Heart: Regular rate, regular rhythm, no murmurs, rubs, or gallops Abdomen: Soft, NT, ND +BS x 4 Extremities: No edema Skin: Warm, no rash, negative turgor. Results & Data Results & Data Vital Signs (Past 12 Hours) Vital Signs Temp Pulse Resp BP Pulse Ox O2 Del Method 10/12/22 08:11 37.0 C 94 H 17 115/79 98 Room Air Laboratory Results Short CBC 10/12/22 Range/Units 07:23 WBC 9.60 (4.8-10.8) K/ul Hgb 11.7 L (12.0-16.0) g/dl Hct 33.8 L (37.0-47.0) % Plt Count 314 (130-400) K/uL BMP 10/12/22 07:23 Sodium 138 Potassium 3.8 Chloride 105 Carbon Dioxide 25 BUN 5 L Creatinine 0.46 L Glucose 87 Calcium 8.6 Liver Function 10/12/22 Range/Units 07:23 Total Bilirubin 0.4 (0.2-1.0) mg/dl AST 15 (13-39) U/L ALT 14 (7-52) U/L Alkaline Phosphatase 74 (34-104) U/L Albumin 3.8 (3.4-5.0) gm/dl Medications Administered Current Inpatient Medications Butalbital/Aspirin/Caffeine (Butalbital/Aspirin/Caffeine 1 Tab Tab) 1 tab PO Q4H PRN PRN Reason: Headache Stop: 11/08/22 21:01 Last Admin: 10/10/22 23:41 Dose: 1 tab Gabapentin (Gabapentin 300 Mg Cap) 300 mg PO [facility] Stop: 11/08/22 20:59 Last Admin: 10/11/22 20:35 Dose: 300 mg Hydrocortisone (Hydrocortisone 10 Mg Tab) 10 mg PO QAM [facility] Stop: 11/09/22 08:59 Last Admin: 10/12/22 08:06 Dose: 10 mg Hydrocortisone (Hydrocortisone 10 Mg Tab) 5 mg PO DAILY@1200 [facility] Stop: 11/09/22 11:59 Last Admin: 10/12/22 12:12 Dose: 5 mg Hydromorphone HCl (Hydromorphone Inj 0.5 Mg/0.5 Ml Syr) 0.5 mg IV Q3H PRN PRN Reason: Pain Stop: 10/23/22 20:53 Last Admin: 10/12/22 12:12 Dose: 0.5 mg Piperacillin Sod/Tazobactam (Sod 4.5 gm/ Dextrose) 120 mls @ 30 mls/hr IV Q8H [facility]; Protocol Stop: 10/19/22 01:59 Last Infusion: 10/12/22 13:33 Dose: Infused Lactated Ringer's (Lr) 1,000 mls @ 125 mls/hr IV .Q8H [facility] Stop: 11/08/22 20:29 Last Admin: 10/12/22 13:32 Dose: 125 mls/hr Lamotrigine (Lamotrigine 25 Mg Tab) 50 mg PO [facility] Stop: 11/08/22 20:59 Last Admin: 10/11/22 20:35 Dose: 50 mg Lamotrigine (Lamotrigine 100 Mg Tab) 100 mg PO [facility] Stop: 11/08/22 20:59 Last Admin: 10/11/22 20:35 Dose: 100 mg Lidocaine (L[facility]ocaine 5% 1 Patch) [facility] Stop: 11/09/22 11:44 Last Admin: 10/12/22 08:03 Dose: 1 patch Methylphenidate HCl (Methylphenidate Hcl 10 Mg Tablet) 20 mg PO TID@0600,1100,1500 [facility] Stop: 10/24/22 05:59 Last Admin: 10/12/22 10:54 Dose: 20 mg Miscellaneous (Remove Lidoderm Patch) 1 each N/A DAILY@2100 [facility] Stop: 11/09/22 20:59 Last Admin: 10/11/22 20:35 Dose: 1 each Morphine Sulfate (Morphine Sulfate 4 Mg/Ml 1 Ml Carp\\Vial) 3 mg IV Q3H PRN PRN Reason: Pain Stop: 10/23/22 18:17 Last Admin: 10/09/22 19:27 Dose: 3 mg Oxycodone HCl (Oxycodone Hcl Ir 5 Mg Tab (Immediate Release)) 5 mg PO Q4H PRN PRN Reason: Moderate Pain (Scale 4, 5, 6) Stop: 10/25/22 05:49 Last Admin: 10/12/22 10:18 Dose: 5 mg Pantoprazole Sodium (Pantoprazole 40 Mg Tab) 40 mg PO BID [facility] Stop: 11/11/22 20:59 Prochlorperazine (Prochlorperazine Maleate 10 Mg Tab) 10 mg PO Q6H PRN PRN Reason: Nausea Stop: 11/08/22 20:50 Last Admin: 10/12/22 10:55 Dose: 10 mg Warfarin Sodium (Warfarin Sod 10 Mg Tab) 10 mg PO [id number]@1600 [facility] Stop: 11/10/22 15:59 Last Admin: 10/11/22 15:13 Dose: 10 mg Warfarin Sodium (Warfarin Sod 5 Mg Tab) 15 mg PO [id number]@1600 [facility] Stop: 11/09/22 15:59 Last Admin: 10/10/22 15:47 Dose: 15 mg
[2022-10-12] MEDS: WARFARIN SOD 5 MG TAB PO SCH (15:26)
[2022-10-12] MEDS: GABAPENTIN 300 MG CAP PO SCH (20:46)
[2022-10-12] MEDS: lamoTRIgine 25 MG TAB PO SCH (20:46)
[2022-10-12] MEDS: lamoTRIgine 100 MG TAB PO SCH (20:47)
[2022-10-12] MEDS: PANTOprazole 40 MG TAB PO SCH (20:55)
[2022-10-13] MEDS: HYDROmorphone INJ 0.5 MG/0.5 ML SYR IV PRN (01:38)
[2022-10-13] MEDS: LACTATED RINGER'S 1,000 ML IV SCH (04:45)
[2022-10-13] MEDS: oxyCODONE HCL IR 5 MG TAB (IMMEDIATE RELEASE) PO PRN ×5 (04:45→22:27)
[2022-10-13] MEDS: METHYLPHENIDATE HCL 10 MG TABLET PO SCH ×3 (06:30→15:28)
[2022-10-13] MEDS: HYDROCORTISONE 10 MG TAB PO SCH ×2 (09:18→13:11)
[2022-10-13] MEDS: PANTOprazole 40 MG TAB PO SCH ×2 (09:19→21:04)
[2022-10-13] MEDS: LIDOCAINE 5% 1 PATCH TD SCH (09:19)
[2022-10-13 09:50] LABS: INR 2.9 (0.9-1.1); Prothrombin Time 29.6 Seconds (9.0-12.0)
[2022-10-13] MEDS: ACETAMINOPHEN 500 MG TAB PO SCH ×2 (13:11→19:40)
--- NOTE | 2022-10-13 15:38 | Hospitalist Progress Note ---
Date of Service October 13, 2022 Assessment & Plan (1) Abdominal pain: Plan: Abdominal pain for the last 2 days associated with nausea no more vomiting since in the hospital Possible pancreatitis has been ruled out (2) Colitis: Plan: Nonspecific colitis involving the part of transverse colon Pt presents w/ abd. pain, also reports BRBPR C. difficile toxin has been negative and stool studies came back negative as well for any infection Has been started on intravenous Zosyn CT abd. pelvis 1. There is suggestion of mild thickening within the distal transverse colon as described above. This could represent a low-grade nonspecific colitis. This favors an infectious or inflammatory process.2. Questionable mild fat stranding at the head of the pancreas. Recommend correlation with pancreatic enzymes to exclude the possibility of a developing acute pancreatitis. GI Consulted - Discussed with GI, pt able to advance diet, they will follow up as OP with c scope D/C Antibiotics, less likely infectious Advance diet as tolerated, pt tolerated regular lunch but will be sure she is tolerating for a few meals prior to d/c Pt will need OP C scope in 4-6 weeks which GI will arrange Discontinued IV narcotics, added scheduled tylenol and PRN oxycodone for severe pain Possible Gastritis PPI BID x 1 month, then daily their after avoid NSAIDS can use topical lidocaine or diclofenac gel H/o severe back pain History of lumbar back pain without radiation Worse with acute abdominal pain Added lidocaine patch History of PE Factor V Leiden deficiency Has been on warfarin INR therapeutic check INR in a.m. Other chronic conditions bipolar, fibromyalgia, adhd, hx of HAs, adrenal insufficiency - cont. home meds History of rheumatoid arthritis DVT ppx: Warfarin Dispo: diet advanced, likely d/c tomorrow with GI follow up if pain improves FULL CODE PCP: Hamida Pt was seen and examined in collaboration with Dr. Mohamud, please see addendum Admission and Anticipated Discharge Date Admission Date: October 11, 2022 Supervising Physician Co-Signing Physician Notes Patient seen and examined at bedside as a follow-up of nonspecific colitis involving the bilateral transverse colon, possible gastritis secondary to long- term use of ibuprofen [patient reports using 3 tablets of ibuprofen every 4-6 for last 3 months]. GI evaluated, discontinued antibiotics. Will need outpatient scope in 4 to 6 weeks. c/w PPI twice daily for gastritis x 1 month then daily. Patient advised to use topical lidocaine 4% or diclofenac gel in future. Reports otherwise improving symptoms of gastritis and low back pain - slightly worse in AM. On examination: Patient on room air, epigastric mild tenderness noted. Rest of the examination as above. I have seen and examined the patient and have discussed the case with the provider above. I agree with the assessment and plan as stated. Subjective Patient was seen and evaluated in 362-1 in follow up of gastritis and colitis. Patient felt poorly after advancing diet and had epigastric and upper abdominal pain all last night. Tolerated a few bites of breakfast but took it easy given how she felt overnight. Overall slight improvement but still quite limited. Pain managed with narcotics. Denies f/c/s, chest pain, sob, n/v. Denies hematochezia, melena but having brown liquid stool. Review of Systems Review of Systems: All systems reviewed and are unremarkable except as noted below. Physical Exam Physical Exam: Gen: WD/WN, NAD, sitting in bedside chair, A&Ox3 HEENT: Normocephalic, atraumatic, conjunctivae moist, sclerae anicteric, mucous membranes moist Lung: Clear to Auscultation bilaterally, no wheezes/rales/rhonchi Heart: Regular rate, regular rhythm, no murmurs, rubs, or gallops Abdomen: Soft, +epigastric TTP, +BS x 4 Extremities: no edema Skin: Warm, no rash Results & Data Results & Data Vital Signs (Past 12 Hours) Vital Signs Temp Pulse Resp BP Pulse Ox O2 Del Method 10/13/22 14:51 36.7 C 68 18 129/86 100 Room Air 10/13/22 07:01 36.4 C L 87 16 107/73 98 Room Air Diagnostic Findings Abdomen/Pelvis CT 10/09/22 14:[address] WITH IV CONTRAST CT DOSE: 1380.75 mGy.cm HISTORY: lower abdominal pain; blood in stool TECHNIQUE: Multiaxial CT images of the abdomen and pelvis were performed following the use of intravenous contrast. A dose lowering technique was utilized adhering to the principles of ALARA. COMPARISON STUDY: None. FINDINGS: Mild dependent changes seen at the lung bases. No pneumoperitoneum. No pneumatosis. No acute fractures identified. The liver, spleen, adrenal glands, gallbladder, and kidneys are unremarkable. No hydronephrosis. The main portal vein is patent. Normal caliber abdominal aorta. There is a left retroaortic renal vein. No retroperitoneal or pelvic lymphadenopathy. The bladder is decompressed but appears unremarkable. Small uterine fibroids are suggested. Normal ovaries. No pelvic free fluid. Questionable mild fat stranding at the head of the pancreas. Recommend correlation with pancreatic enzymes to exclude the possibility of a developing acute pancreatitis. Otherwise, the pancreas enhances normally. The majority of the colon is decompressed resulting in suboptimal evaluation. There is suggestion of mild thickening within the distal transverse colon best seen on image 126. This could represent a low-grade nonspecific colitis. This favors an infectious or inflammatory process. The major mesenteric vessels appear patent. No dilated loops of bowel to suggest an obstruction. Normal appendix. IMPRESSION: 1. There is suggestion of mild thickening within the distal transverse colon as described above. This could represent a low-grade nonspecific colitis. This favors an infectious or inflammatory process. 2. Questionable mild fat stranding at the head of the pancreas. Recommend correlation with pancreatic enzymes to exclude the possibility of a developing acute pancreatitis. ACT 112: Negative or not required by law. Electronically signed by: Rupert Livingston M.D. 10/09/2022 5:17 PM
[2022-10-13] MEDS: WARFARIN SOD 10 MG TAB PO SCH (16:38)
[2022-10-13] MEDS: GABAPENTIN 300 MG CAP PO SCH (21:03)
[2022-10-13] MEDS: lamoTRIgine 100 MG TAB PO SCH (21:03)
[2022-10-13] MEDS: lamoTRIgine 25 MG TAB PO SCH (21:04)
[2022-10-14] MEDS: oxyCODONE HCL IR 5 MG TAB (IMMEDIATE RELEASE) PO PRN ×3 (02:59→11:25)
[2022-10-14] MEDS: ACETAMINOPHEN 500 MG TAB PO SCH ×2 (03:00→11:25)
[2022-10-14] MEDS: METHYLPHENIDATE HCL 10 MG TABLET PO SCH ×2 (06:16→11:25)
[2022-10-14 06:58] LABS: Calcium 8.8 mg/dl (8.6-10.3); Creatinine Clr Calc Pharmacy 182.2 ml/min; Est GFR (African American) 146.4 ml/min; Est GFR (Non-African American) 126.3 ml/min; Potassium 3.5 mmol/L (3.5-5.1)
[2022-10-14 07:19] LABS: INR 2.9 (0.9-1.1); Prothrombin Time 29.4 Seconds (9.0-12.0)
[2022-10-14] MEDS: PANTOprazole 40 MG TAB PO SCH (09:08)
[2022-10-14] MEDS: LIDOCAINE 5% 1 PATCH TD SCH (09:08)
[2022-10-14] MEDS: HYDROCORTISONE 10 MG TAB PO SCH ×2 (09:08→11:26)
--- NOTE | 2022-10-14 14:20 | Discharge Summary ---
Discharge Summary Date of Service October 14, 2022 Notes For Next Care Provider Nonspecific colitis, possible gastritis with GI follow-up for outpatient colonoscopy in 4 to 6 weeks Medication Changes From Visit As needed Pepcid, Tums, pain control Admission HPI Per Admitting Provider 32 yo F w/ hx of PE (on coumadin), ADHD, seronegat. RA , fibromyalgia, bipolar d/o, poss. factor V leiden, who presents w/ abdominal pain. Pt first presented in the ED yesterday with poss. flank pain and CT PE was obtained and negative for PE. Today she presented again in the ED as she said she was now noticing blood in the stool and had severe abdominal pain. Pt is on warfarin due to hx of PE and poss. factor V leiden. INR 2.4 today in ER. Pt says her INR tends to fluctuate. Pt reports epigastric pain mostly that radiates to her back, also reports nausea. At home pt takes tramadol 50 tid for chronic pain (associated w/ RA). In the ED CT abd. pelvis was obtained and concerning for poss. starting pancreatitis and also colitis. Initially plan was to discharge pt on oral augmentin and po pain meds however pt reports pain being uncontrolled and therefore pt is being admitted to the hospital. Fam hx - mother - hx of RA, breast ca Admission Exam Per Admitting Provider Constitutional: WD/WN, vitals as above (obese F) Eyes: PERRL, conjunctivae normal, anicteric sclerae ENMT: external ear and nose normal, oropharynx normal Neck: trachea midline, no thyromegaly Respiratory: normal respiratory effort, lungs clear to auscultation Cardiovascular: RRR, no murmur, no edema Gastrointestinal (Abdomen): Inspection/Auscultation: abdomen normal to inspection (soft, obese, tender to palp at epigastric region) Musculoskeletal: no cyanosis or clubbing, extremities motor strength 5/5 Skin: no rashes, warm and dry Neurologic: PERRL, EOMI, accommodation nl, no face palsy, no dysarthria Psychiatric: A+Ox3, euthymic affect Principal Dx & Hospital Course #1 = Principal Diagnosis (1) Abdominal pain: (2) Colitis: (3) On warfarin therapy: (4) Rheumatoid arthritis: Plan This is a 32 yo F w/ hx of PE (on coumadin), ADHD, seronegat. RA , fibromyalgia, bipolar d/o, poss. factor V leiden, who presents w/ abdominal pain and was found to have nonspecific colitis involving the part of transverse colon on CT abd/pelvis. Was initially started on Zosyn but then antibiotics were discontinued due to unlikely infectious etiology. C. difficile toxin has been negative and stool studies came back negative as well. GI Consulted and will follow up with patient for outpatient colonoscopy in 4-6 weeks, to be arranged by GI service. Due to initial concern for possible gastritis, Protonix was started but due to significant risk of interaction with methotrexate, decided to discontinue per GI and discharge instructions for as needed Pepcid and Tums for dyspepsia. Had 1 episode of vomiting initially that is resolved and no longer experiencing any nausea or vomiting. Counseled on strict cessation from NSAIDs. Recommended use of as needed Tylenol and tramadol at home. Continuing all other chronic home medications as prescribed. Scheduled to follow-up with PCP on Monday as well as GI follow-up in the future. Comfortable and hemodynamically stable at time of discharge home. Discharge Exam Gen: WD/WN, NAD, sitting in bedside chair, A&Ox3 HEENT: Normocephalic, atraumatic, conjunctivae moist, sclerae anicteric, mucous membranes moist Lung: Clear to Auscultation bilaterally, no wheezes/rales/rhonchi Heart: Regular rate, regular rhythm, no murmurs, rubs, or gallops Abdomen: Soft, + mild epigastric TTP, no guarding, +BS x 4 Extremities: no edema Skin: Warm, no rash Updated Medication List Medication Instructions Recorded Confirmed Type Methylphenidate (Ritalin) 20 mg PO TID ##0 10/27/08 10/09/22 History yazgevcfji-dbvnuglufaien-yenphyae 1 cap PO Q4H PRN Headache 10/09/22 10/09/22 History 50 mg-300 mg-40 mg capsule gabapentin 300 mg capsule 300 mg PO HS 10/09/22 10/09/22 History hydrocortisone 5 mg tablet See Rx Instructions .Route .COMPLEX 10/09/22 10/09/22 History lamotrigine 100 mg tablet 100 mg PO HS 10/09/22 10/09/22 History lamotrigine 25 mg tablet 50 mg PO HS 10/09/22 10/09/22 History methotrexate sodium 25 mg/mL 25 mg subcut WK 10/09/22 10/09/22 History injection solution prochlorperazine maleate 10 mg 10 mg PO Q6H PRN Nausea 10/09/22 10/09/22 History tablet tramadol 50 mg tablet 50 mg PO Q4H PRN Pain 10/09/22 10/09/22 History warfarin 10 mg tablet See Rx Instructions .Route .COMPLEX 10/09/22 10/09/22 History oxycodone 5 mg tablet 5 mg PO Q8H PRN severe pain (scale 10/14/22 Rx score 7-10) #5 tabs pantoprazole 40 mg tablet,delayed 40 mg PO DAILY #30 tabs 10/14/22 Rx release Hospital Stay Data Consultations 10/09/22 18:09 ED Decision to Admit Stat 10/11/22 11:21 Consult Gastroenterology Routine Diagnostic Imagining Performed 10/09/22 14:39 CT abd pelvis IV con only Stat Pending Results Patient Have Any Pending Studies at Discharge: No Discharge Instructions Given to Patient (Per Discharging Provider) MEDICATION CHANGES: Continue as needed tylenol and tramadol for pain. Oxycodone Q8H as needed for severe pain over the weekend. For mild heartburn or reflux, can try over the counter Pepcid or Tums as needed SUMMARY OF TEST RESULTS: You were admitted to hospital secondary to nonspecific colitis C. difficile toxin and stool studies negative PENDING TEST RESULTS: None RECOMMENDATIONS FOR FOLLOW-UP: Follow up with PCP and GI as scheduled. Avoid NSAIDS such as ibuprofen, motrin, advil, aspirin. Will need outpatient colonoscopy in 4-6 weeks, which GI will arrange. Follow up with GI in clinic. Continue medication regimen as scheduled aside from changes noted above. OTHER INSTRUCTIONS: Seek medical attention if you have: * temperature above 101 * chest pain or trouble breathing * abdominal pain, nausea, vomiting * diarrhea, dark stools or bloody stools * any unanswered questions or concerns Call 911 if symptoms are severe. Please take good care of yourself. Call if you have any questions or problems. You can reach a [facility] hospitalist on duty at [facility] 24 hours a day by calling [phone]. Total Time Total Time Spent Total Time Spent (In Minutes): 40 Supervising Physician Co-Signing Physician Notes Patient seen and examined at bedside as a follow-up of nonspecific colitis involving the bilateral transverse colon, possible gastritis secondary to long- term use of ibuprofen [patient reports using 3 tablets of ibuprofen every 4-6 for last 3 months]. GI evaluated, discontinued antibiotics. Will need outpatient scope in 4 to 6 weeks. c/w PPI twice daily for gastritis x 1 month then daily. Patient advised to use topical lidocaine 4% or diclofenac gel in future. Reports otherwise improving symptoms of gastritis and low back pain. On examination: Patient on room air, epigastric mild tenderness noted. Rest of the examination as above. I have seen and examined the patient and have discussed the case with the provider above. I agree with the assessment and plan as stated.
== END 2022-10-14 15:13 | disposition home or self-care (01) | DRG 392 ==
LOC: 3W 14:22 → ED 14:22 → SUATTDRO 18:10 → 3W 19:38 → SUATTDRO 10-11 12:43